=== PATIENT | female | born 1940 | race Caucasian/White ===

== ENCOUNTER 2024-10-20 10:52 | Observation (INO) ==
--- NOTE | 2024-10-20 11:56 | Emergency Department Note ---
Impression & Plan Stroke-like symptoms, Hypertensive urgency ED Provider Note NAME: DAVID RAYA AGE: 84 SEX: F : 1940 ARRIVES VIA: Ambulance INFORMANT: Patient, ED PROVIDER(S): Rufino Ramires MD CHIEF COMPLAINT: Left arm numbness, left leg weakness HPI: This is a 84-year-old female presented for transient left arm and leg numbness/weakness. Patient notes that about 2 days ago she states that her left arm felt numb. She then noticed that eating that her left leg felt weak and she could not move it she was dragging the leg. She notes that she had resolution of symptoms over the course a few hours. She notes that now both her legs feel somewhat weak but not significantly numb. She reports no chest pain, short breath, fever, chills, nausea or vomiting. No chest pain. No headache at this time. She will have a headache but 2 days ago which have since resolved with Tylenol. ROS: See above HPI for pertinent positives & negatives. A total of 10 systems reviewed and were otherwise negative. PAST MEDICAL HISTORY: See Below PAST SURGICAL HISTORY: See Below FAMILY HISTORY: See Below SOCIAL HISTORY: See Below HOME MEDICATIONS: See Below ALLERGIES: See Below VITALS: See Below PHYSICAL EXAMINATION: General: resting comfortably in no acute distress Head: Normocephalic and atraumatic Eyes: Normal inspection, extraocular muscles intact Ear, nose, throat: Normal external exam Neck: Normal range of motion Respiratory: lungs clear to auscultation bilaterally Cardiovascular: Regular rate/rhythm, no murmur GI: soft, nontender, no guarding or rebound Extremities: nontender, moves all extremities Neuro: The patient awake and alert, appropriately conversive, no focal deficits, symmetric faces, cranial 2-12 grossly intact, no motor drift Skin: Warm, dry, and intact MEDICAL DECISION MAKING: This is an 84-year-old female presenting for left arm/leg weakness/numbness. The symptoms have currently resolved concerning for a TIA. Low concern for acute stroke. Consider anemia, weakness, upper respiratory infection, pneumonia otherwise. -Bloodwork is reviewed showing no significant leukocytosis, anemia, electrolyte or creatinine abnormality -ECG independently interpreted by me with normal sinus rhythm, rate of 65, normal axis, normal IL, normal QRS, normal QTc, no ST segment elevations consistent with STEMI criteria -CTs of the head/CTA are both negative. There is no significant atherosclerosis or high-grade stenosis/arterial occlusion in the CTA of the neck. There is a 3 mm focus of saccular outpouching along the V3 segment of the right vertebral artery suggestive of small aneurysm without rupture. -Otherwise patient was notably hypertensive with pressures in the almost 220s systolic. Will give IV labetalol at this time -With patient's transient neurologic symptoms, will admit for further TIA/stroke workup -Discussed care with [facility] service for admission under Dr. Angel Differential diagnosis: Stroke, TIA, anemia, URI, Independent History obtained from: [facility] interpreted by me: ECG: See above Cardiac Monitoring: An order was placed for continuous cardiac monitoring. The monitor shows a rate of 63 with sinus rhythm. Past Med/Surg History Problem List (Updated 10/20/24 @ 19:00 by Rufino Ramires MD) Hypertensive urgency (Acute) Stroke-like symptoms (Acute) Medical History (Updated 10/20/24 @ 19:00 by Rufino Ramires MD) Elbow fracture Surgical History (Updated 10/20/24 @ 13:49 by Jena Malin PA-C) History of surgery on arm plate for a fracture Family History (Updated 10/20/24 @ 13:50 by Jena Malin PA-C) Brother Kidney disease Denies family history of Diabetes Heart disease Social History (Updated 10/20/24 @ 13:50 by Jena Malin PA-C) Smoking Status: Never smoker Hx Alcohol Use: No Hx Substance Use: No Preferred Language: German Communication Ability: Effective Site Lead Required: No Beliefs That Will Affect Care: None Current Living Situation: Alone Other Information That Helps Us Care for You: No Feels Safe at Home: Yes Safety Concerns: Feels Safe At This Time Assistive Devices: Glasses Allergies Allergies Allergy/AdvReac Type Severity Reaction Status Date / Time No Known Allergies Allergy Unverified 10/20/24 13:57 Home Meds Home Medications Medication Instructions Recorded Confirmed No Known Home Medications 10/20/24 10/20/24 Results & Data (ED) Vital Signs Vital Signs - 24 hr 10/20/24 10:52 10/20/24 11:05 10/20/24 11:12 Temperature 36.9 C Temperature Source Oral Pulse Rate 67 69 70 Pulse Rate [Left Apical] Pulse Rate from SpO2 Sensor 69 Respiratory Rate 17 12 Respiratory Effort / Characteristics Non-Labored Respiratory Depth Normal Respiratory Pattern Regular Blood Pressure 187/97 H Blood Pressure [Left Arm] Blood Pressure Mean 127 Blood Pressure Mean [Left Arm] Pulse Oximetry 97 97 Oxygen Delivery Method Room Air Sepsis Recent Fever Within 48 Hours No Sepsis New/Unexplained Change in Mental Status N/A Sepsis Action Taken by Nursing No Action Required 10/20/24 11:30 10/20/24 12:03 10/20/24 12:36 Temperature Temperature Source Pulse Rate 58 L 63 59 L Pulse Rate [Left Apical] Pulse Rate from SpO2 Sensor 57 L Respiratory Rate 23 17 16 Respiratory Effort / Characteristics Respiratory Depth Respiratory Pattern Blood Pressure Blood Pressure [Left Arm] Blood Pressure Mean Blood Pressure Mean [Left Arm] Pulse Oximetry 99 Oxygen Delivery Method Sepsis Recent Fever Within 48 Hours Sepsis New/Unexplained Change in Mental Status Sepsis Action Taken by Nursing 10/20/24 12:54 10/20/24 13:08 10/20/24 13:10 Temperature Temperature Source Pulse Rate 71 Pulse Rate [Left Apical] Pulse Rate from SpO2 Sensor Respiratory Rate 18 Respiratory Effort / Characteristics Respiratory Depth Respiratory Pattern Blood Pressure 206/87 H Blood Pressure [Left Arm] 217/91 H Blood Pressure Mean 149 Blood Pressure Mean [Left Arm] 133 Pulse Oximetry 97 Oxygen Delivery Method Room Air Sepsis Recent Fever Within 48 Hours Sepsis New/Unexplained Change in Mental Status Sepsis Action Taken by Nursing 10/20/24 13:13 10/20/24 13:14 10/20/24 13:20 Temperature Temperature Source Pulse Rate 66 Pulse Rate [Left Apical] 66 Pulse Rate from SpO2 Sensor Respiratory Rate Respiratory Effort / Characteristics Respiratory Depth Respiratory Pattern Blood Pressure 217/91 H 208/85 H Blood Pressure [Left Arm] Blood Pressure Mean 140 Blood Pressure Mean [Left Arm] Pulse Oximetry Oxygen Delivery Method Sepsis Recent Fever Within 48 Hours Sepsis New/Unexplained Change in Mental Status Sepsis Action Taken by Nursing 10/20/24 13:21 10/20/24 13:27 10/20/24 13:30 Temperature Temperature Source Pulse Rate 65 65 Pulse Rate [Left Apical] Pulse Rate from SpO2 Sensor Respiratory Rate 17 13 Respiratory Effort / Characteristics Respiratory Depth Respiratory Pattern Blood Pressure 188/86 H Blood Pressure [Left Arm] Blood Pressure Mean 151 Blood Pressure Mean [Left Arm] Pulse Oximetry 97 97 Oxygen Delivery Method Room Air Room Air Sepsis Recent Fever Within 48 Hours Sepsis New/Unexplained Change in Mental Status Sepsis Action Taken by Nursing 10/20/24 13:39 10/20/24 13:50 10/20/24 13:51 Temperature Temperature Source Pulse Rate 67 64 Pulse Rate [Left Apical] Pulse Rate from SpO2 Sensor Respiratory Rate 19 Respiratory Effort / Characteristics Respiratory Depth Respiratory Pattern Blood Pressure 187/94 H 188/86 H Blood Pressure [Left Arm] Blood Pressure Mean 139 Blood Pressure Mean [Left Arm] Pulse Oximetry 99 Oxygen Delivery Method Room Air Sepsis Recent Fever Within 48 Hours Sepsis New/Unexplained Change in Mental Status Sepsis Action Taken by Nursing 10/20/24 13:54 10/20/24 14:03 Temperature Temperature Source Pulse Rate 68 63 Pulse Rate [Left Apical] Pulse Rate from SpO2 Sensor 68 64 Respiratory Rate 20 21 Respiratory Effort / Characteristics Respiratory Depth Respiratory Pattern Blood Pressure 193/87 H Blood Pressure [Left Arm] Blood Pressure Mean 122 Blood Pressure Mean [Left Arm] Pulse Oximetry 97 99 Oxygen Delivery Method Sepsis Recent Fever Within 48 Hours Sepsis New/Unexplained Change in Mental Status Sepsis Action Taken by Nursing Laboratory Data 10/20/24 11:14 10/20/24 11:14 Lab Results 10/20/24 Range/Units 11:14 WBC 7.27 (4.8-10.8) K/ul RBC 4.21 (4.20-5.40) M/uL Hgb 12.6 (12.0-16.0) g/dl Hct 38.0 (37.0-47.0) % MCV 90.3 (80.0-100.0) fL MCH 29.9 (25.0-34.0) pg MCHC 33.2 (32.0-36.0) g/dL RDW Std Deviation 42.5 (36.4-46.3) fL RDW Coeff of Caleb 12.9 (11.5-14.5) % Plt Count 274 (130-400) K/uL MPV 9.9 (9.4-12.4) fL Immature Gran % (Auto) 0.6 % Neut % (Auto) 67.4 % Lymph % (Auto) 23.0 % [place] % (Auto) 6.5 % Eos % (Auto) 1.9 % Baso % (Auto) 0.6 % Neut # (Auto) 4.91 (1.40-6.50) K/uL Lymph # (Auto) 1.67 (1.20-3.40) K/uL [place] # (Auto) 0.47 (0.11-0.59) K/uL Eos # (Auto) 0.14 (0.00-0.50) K/uL Baso # (Auto) 0.04 (0.00-0.20) K/uL Immature Gran # (Auto) 0.04 (0.01-0.20) K/uL PT 10.4 (9.0-12.0) Seconds INR 1.0 (0.9-1.1) APTT 23 (21-31) Seconds PTT Ratio 0.9 Sodium 141 (136-145) mmol/L Potassium 4.0 (3.5-5.1) mmol/L Chloride 107 (98-107) mmol/L Carbon Dioxide 27 (21-32) mmol/L Anion Gap 7 (3-11) BUN 15 (6-23) mg/dl Creatinine 0.88 (0.6-1.2) mg/dl Est Cr Clr Drug Dosing Not Reportable eGFR 65.17 BUN/Creatinine Ratio 17.0 (10-20) Glucose 103 H (70-99(Fasting)) mg/dl Calcium 9.4 (8.6-10.3) mg/dl Magnesium 2.0 (1.7-2.4) mg/dl Total Bilirubin 0.9 (0.2-1.0) mg/dl AST 13 (13-39) U/L ALT 6 L (7-52) U/L Alkaline Phosphatase 71 (34-104) U/L Troponin I High Sens 11.0 (0-14) pg/ml Total Protein 7.7 (6.0-8.3) gm/dl Albumin 3.9 (3.4-5.0) gm/dl Globulin 3.8 (2.5-4.0) gm/dl Albumin/Globulin Ratio 1.0 (0.9-2) Administered Medications Aspirin (Aspirin 81 Mg Ectab) 81 mg PO [facility] Stop: 11/19/24 17:44 Last Admin: 10/20/24 18:50 Dose: 81 mg Documented By: PK Discontinued Medications Amlodipine Besylate (Amlodipine Besylate 5 Mg Tab) 5 mg PO NOW ONE Stop: 10/20/24 13:45 Last Admin: 10/20/24 14:49 Dose: 5 mg Documented By: RONNIE Hydralazine HCl (Hydralazine Hcl 20 Mg/Ml Vial) 5 mg IV NOW ONE Stop: 10/20/24 13:45 Last Admin: 10/20/24 13:58 Dose: 5 mg Documented By: RONNIE Ioversol (Optiray 320 125ml) 119 ml IV ONCE ONE Stop: 10/20/24 12:43 Last Admin: 10/20/24 12:42 Dose: 119 ml Documented By: GUILLERMINA Labetalol HCl (Labetalol Hcl Iv 5 Mg/Ml 20ml) 10 mg IV NOW STA Stop: 10/20/24 13:11 Last Admin: 10/20/24 13:14 Dose: 10 mg Documented By: [facility] Imaging Data Radiologist's Impression: Head CT 10/20/24 11:50 CT head/brain wo con CLINICAL HISTORY: 84 years-old Female with RUE, RLE weakness x2 days. Acute stroke like symptoms TECHNIQUE: Multiple axial CT images of the head were obtained without contrast. A dose lowering technique was utilized adhering to the principles of ALARA. COMPARISON: CTA head and neck of same day FINDINGS: No acute intracranial hemorrhage, midline shift, intracranial mass, hydrocephalus, territorial ischemia or abnormal extra-axial collection. Involutional changes with white matter hypodensities suggestive of chronic microvascular ischemic disease. The calvarium is intact. The paranasal sinuses, mastoid air cells, and middle ear cavities are clear. IMPRESSION: No acute intracranial abnormality. ACT 112: Negative or not required by law. The above report was generated using voice recognition software. It may contain grammatical, syntax or spelling errors. Electronically signed by: Joseph Duenas M.D. 10/20/2024 12:57 PM Head CTA 10/20/24 11:50 CTA ANGIOGRAPHY OF THE HEAD CLINICAL HISTORY: RUE, RLE weakness x2 days COMPARISON STUDY: No previous studies for comparison. TECHNIQUE: Helical axial images of the head were obtained following uneventful intravenous administration of 119 cc of Optiray. Sagittal and coronal reconstructions were viewed as well as maximal intensity projections on an independent 3-D workstation. Automated exposure control was utilized for the study. A dose lowering technique was utilized adhering to the principles of ALARA. FINDINGS: No acute intracranial hemorrhage, midline shift or mass effect is present. Ventricular system is unremarkable. Basal cisterns are patent. A small amount of fluid within the left mastoid air cells is present. The bilateral M1, M2, A1 and A2 segments are patent. No large vessel occlusion is present. No intracranial aneurysm. Posterior circulation is also intact. IMPRESSION: No large vessel occlusion. No intracranial aneurysm. ACT 112: Negative or not required by law. Electronically signed by: Scotty Rowley M.D. 10/20/2024 1:11 PM Neck CTA 10/20/24 11:50 CT angio neck with con CLINICAL HISTORY: 84 years-old Female with RUE, RLE weakness x2 days. Acute stroke like symptoms COMPARISON STUDY: CTA head of same day TECHNIQUE: Following the IV administration of 119 mL of Optiray, CT angiogram of the neck was performed from the aortic arch to the skull base. Images are reviewed in the axial, sagittal, and coronal planes. 3-D MIPS images are created and assessed. IV contrast was administered without complication. All measurements were calculated based on NASCET criteria. A dose lowering technique was utilized adhering to the principles of ALARA. CT DOSE: 1178.99 mGy.cm FINDINGS: Three-vessel morphology of the thoracic aortic arch. Patency of the innominate and imaged subclavian arteries. Patent common carotid arteries. The imaged internal carotid arteries are patent. The vertebral arteries are codominant and patent. 3 mm focus of saccular outpouching involves the C3 segment of the right vertebral artery in image 236 series 7. No high-grade stenosis, arterial occlusion or dissection identified. No pneumothorax. Partially imaged 5 mm groundglass nodular focus within the right lung apex. Thyroid goiter. No lymphadenopathy. Degenerative changes of the spine. IMPRESSION: 1. No significant atherosclerosis, high-grade stenosis or arterial occlusion identified. 2. 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 3. Partially imaged 5 mm groundglass nodular focus of the right upper lobe could be correlated with a nonemergent follow-up chest CT. 4. Thyroid goiter. ACT 112: Negative or not required by law. The above report was generated using voice recognition software. It may contain grammatical, syntax or spelling errors. Electronically signed by: Joseph Duenas M.D. 10/20/2024 1:02 PM Discharge Plan Visit Data Chief Complaint: Illness Stated Complaint: ILLNESS ED Provider: Rufino Ramires Discharge Problem: Stroke-like symptoms, Hypertensive urgency Patient Disposition: Admitted As Inpatient Discharge Instructions Interventions: ED Discharge Assessment Last Done: 10/20/24 15:20
[2024-10-20 12:20] LABS: Basophils # (auto) 0.04 K/uL (0.00-0.20); Basophils % (auto) 0.6 %; Eosinophils # (auto) 0.14 K/uL (0.00-0.50); Eosinophils % (auto) 1.9 %; Hemoglobin 12.6 g/dl (12.0-16.0); Immature Granulocytes # (auto) 0.04 K/uL (0.01-0.20); Immature Granulocytes % (auto) 0.6 %; Lymphocytes # (auto) 1.67 K/uL (1.20-3.40); Mean Corpuscular Hemoglobin 29.9 pg (25.0-34.0); Mean Corpuscular Hgb Conc 33.2 g/dL (32.0-36.0); Mean Corpuscular Volume 90.3 fL (80.0-100.0); Mean Platelet Volume 9.9 fL (9.4-12.4); Monocytes # (auto) 0.47 K/uL (0.11-0.59); Monocytes % (auto) 6.5 %; Neutrophils # (auto) 4.91 K/uL (1.40-6.50); Neutrophils % (auto) 67.4 %; Platelet Count 274 K/uL (130-400); RDW Coefficient of Variation 12.9 % (11.5-14.5); RDW Standard Deviation 42.5 fL (36.4-46.3); Red Blood Count 4.21 M/uL (4.20-5.40); White Blood Count 7.27 K/ul (4.8-10.8)
[2024-10-20 12:23] LABS: Alanine Aminotransferase 6 U/L (7-52); Albumin Level 3.9 gm/dl (3.4-5.0); Alkaline Phosphatase 71 U/L (34-104); Anion Gap 7 (3-11); Aspartate Aminotransferase 13 U/L (13-39); Bilirubin,Total 0.9 mg/dl (0.2-1.0); Blood Urea Nitrogen 15 mg/dl (6-23); Calcium 9.4 mg/dl (8.6-10.3); Carbon Dioxide 27 mmol/L (21-32); Chloride 107 mmol/L (98-107); Globulin 3.8 gm/dl (2.5-4.0); Glucose 103 mg/dl (70-99(Fasting)); Sodium 141 mmol/L (136-145); Total Protein 7.7 gm/dl (6.0-8.3)
[2024-10-20 12:37] LABS: Partial Thromboplastin Ratio 0.9; Partial Thromboplastin Time 23 Seconds (21-31); Prothrombin Time 10.4 Seconds (9.0-12.0)
[2024-10-20] MEDS: OPTIRAY 320 125ml IV ONE (12:42)
--- NOTE | 2024-10-20 12:59 | CT Scan Report ---
CT head/brain wo con CLINICAL HISTORY: 84 years-old Female with RUE, RLE weakness x2 days. Acute stroke like symptoms TECHNIQUE: Multiple axial CT images of the head were obtained without contrast. A dose lowering tech nique was utilized adhering to the principles of ALARA. COMPARISON: CTA head and neck of same day FINDINGS: No acute intracranial hemorrhage, midline shift, intracranial mass, hydrocephalus, territorial ischem ia or abnormal extra-axial collection. Involutional changes with white matter hypodensities suggestiv e of chronic microvascular ischemic disease. The calvarium is intact. The paranasal sinuses, mastoid air cells, and middle ear cavities are clear . IMPRESSION: No acute intracranial abnormality. ACT 112: Negative or not required by law. The above report was generated using voice recognition software. It may contain grammatical, syntax o r spelling errors. Electronically signed by: Joseph Duenas M.D. 10/20/2024 12:57 PM
--- NOTE | 2024-10-20 13:03 | CT Scan Report ---
CT angio neck with con CLINICAL HISTORY: 84 years-old Female with RUE, RLE weakness x2 days. Acute stroke like symptoms COMPARISON STUDY: CTA head of same day TECHNIQUE: Following the IV administration of 119 mL of Optiray, CT angiogram of the neck was perform ed from the aortic arch to the skull base. Images are reviewed in the axial, sagittal, and coronal pl anes. 3-D MIPS images are created and assessed. IV contrast was administered without complication. Al l measurements were calculated based on NASCET criteria. A dose lowering technique was utilized adhe ring to the principles of ALARA. CT DOSE: 1178.99 mGy.cm FINDINGS: Three-vessel morphology of the thoracic aortic arch. Patency of the innominate and imaged subclavian arteries. Patent common carotid arteries. The imaged internal carotid arteries are patent. The verteb ral arteries are codominant and patent. 3 mm focus of saccular outpouching involves the C3 segment of the right vertebral artery in image 236 series 7. No high-grade stenosis, arterial occlusion or diss ection identified. No pneumothorax. Partially imaged 5 mm groundglass nodular focus within the right lung apex. Thyroid goiter. No lymphadenopathy. Degenerative changes of the spine. IMPRESSION: 1. No significant atherosclerosis, high-grade stenosis or arterial occlusion identified. 2. 3 mm focus of saccular outpouching involves the V3 segment of the right vertebral artery suggestiv e of a small aneurysm without rupture. 3. Partially imaged 5 mm groundglass nodular focus of the right upper lobe could be correlated with a nonemergent follow-up chest CT. 4. Thyroid goiter. ACT 112: Negative or not required by law. The above report was generated using voice recognition software. It may contain grammatical, syntax o r spelling errors. Electronically signed by: Joseph Duenas M.D. 10/20/2024 1:02 PM
--- NOTE | 2024-10-20 13:12 | CT Scan Report ---
CTA ANGIOGRAPHY OF THE HEAD CLINICAL HISTORY: RUE, RLE weakness x2 days COMPARISON STUDY: No previous studies for comparison. TECHNIQUE: Helical axial images of the head were obtained following uneventful intravenous administr ation of 119 cc of Optiray. Sagittal and coronal reconstructions were viewed as well as maximal inten sity projections on an independent 3-D workstation. Automated exposure control was utilized for the study. A dose lowering technique was utilized adhering to the principles of ALARA. FINDINGS: No acute intracranial hemorrhage, midline shift or mass effect is present. Ventricular syst em is unremarkable. Basal cisterns are patent. A small amount of fluid within the left mastoid air ce lls is present. The bilateral M1, M2, A1 and A2 segments are patent. No large vessel occlusion is pre sent. No intracranial aneurysm. Posterior circulation is also intact. IMPRESSION: No large vessel occlusion. No intracranial aneurysm. ACT 112: Negative or not required by law. Electronically signed by: Scotty Rowley M.D. 10/20/2024 1:11 PM
[2024-10-20] MEDS: LABETALOL HCL IV 5 MG/ML 20ML IV STA (13:14)
--- NOTE | 2024-10-20 13:51 | History & Physical Report ---
Date of Service October 20, 2024 Assessment & Plan (1) Stroke-like symptoms: (2) Hypertensive urgency: Plan This is an 84 y/o female with no significant PMH who presented to the ED today for evaluation of intermittent stroke-like symptoms for the last two days. Work- up in the ED revealed a markedly elevated blood pressure at 217/91, pt received IV labetalol in the ED with improvement of systolic BP to the 180s. CT head was negative for acute intracranial pathology. Pt does not routinely follow with a medical provider so she is unsure if she has any chronic conditions such as hypertension or diabetes. Pt was referred for admission for further work-up. #Stroke-like symptoms - Observe in PCU overnight - Neuro checks per protocol - MRI brain without contrast - ECHO - Neuro consult - PT/OT evaluations - Pt passed bedside swallow so will not consult speech therapy at this time - Lipid panel, A1c in the AM - B12, folate, vitamin D level due to bilateral LE weakness - Add low-dose aspirin daily once blood pressure stabilizes #Hypertensive urgency - suspect underlying undiagnosed hypertension exacerbated by anxiety, elevated BP likely contributing to patient's symptoms - IV hydralazine PRN - Give dose of amlodipine today and monitor - Suspect will need to be discharge on anti-hypertensive therapy At discharge, pt will need outpatient f/u including to establish with a PCP at discharge Will need non-urgent CT chest to evaluate RUL nodular opacity Defer timing of repeat imaging for saccular aneurysm to neurology. Pt seen and reviewed with collaborating physician, Dr. Angel. Plan of care discussed and as outlined above. Code status: Full code DVT prophylaxis: SCDs until BP stabilizes. Anton Malin PA-C History of Present Illness Chief Complaint: stroke-like symptoms Primary Care Provider: NO PCP This is an 84 y/o female with no significant PMH who presented to the ED today for evaluation of intermittent stroke-like symptoms for the last two days. Pt reports that on Sunday (three days ago), she felt at her baseline. Two days ago, Sunday evening, she developed LUE numbness and paraesthesias followed by a sensation of left leg heaviness and inability to move correctly. Pt states that she had to drag her leg to get to her room where she sat down to rest for about half an hour before the symptoms resolved. Yesterday morning, she developed a similar sensation of heaviness in the right leg but not as severe or extensive. This lasted several minutes before going away. She also noted a headache yesterday that was preceded by vision changes described as "stripes in my vision" - she took some Tylenol and this improved. She has had similar headaches in the past, denies history of migraines. She denies chest pain, dyspnea, abdominal pain, N/V, changes in bowel movements, loss of appetite, change in urination. She has occasional palpitations. She did note transient lightheadedness at one over the weekend as well but no syncopal episode. She does not routinely follow with a PCP so she is unsure if she has any chronic medical conditions but denies history of diagnosed diabetes, hypertension, or heart disease. Allergies Allergy/AdvReac Type Severity Reaction Status Date / Time No Known Allergies Allergy Unverified 10/20/24 13:57 Home Medications Medication Instructions Recorded Confirmed Type No Known Home Medications 10/20/24 10/20/24 History Past Med/Surg History Problem List (Updated 10/20/24 @ 19:00 by Rufino Ramires MD) Hypertensive urgency (Acute) Stroke-like symptoms (Acute) Medical History (Updated 10/20/24 @ 19:00 by Rufino Ramires MD) Elbow fracture Surgical History (Updated 10/20/24 @ 13:49 by Jena Malin PA-C) History of surgery on arm plate for a fracture Family History (Updated 10/20/24 @ 13:50 by Jena Malin PA-C) Brother Kidney disease Denies family history of Diabetes Heart disease Social History (Updated 10/20/24 @ 13:50 by Jena Malin PA-C) Smoking Status: Never smoker Hx Alcohol Use: No Hx Substance Use: No Preferred Language: Nepali Communication Ability: Effective Display Director Required: No Beliefs That Will Affect Care: None Current Living Situation: Alone Other Information That Helps Us Care for You: No Feels Safe at Home: Yes Safety Concerns: Feels Safe At This Time Assistive Devices: Glasses Review of Systems Review of Systems: All systems reviewed & are unremarkable except as noted in Subjective Physical Exam Physical Exam: See physician note for details of the physical exam. Results & Data Results & Data Vital Signs (Past 12 Hours) Vital Signs Temp Pulse Pulse Resp BP BP Pulse Ox 10/20/24 13:39 67 19 99 10/20/24 13:30 188/86 H 10/20/24 13:27 65 13 97 10/20/24 13:21 65 17 97 10/20/24 13:20 208/85 H 10/20/24 13:14 66 217/91 H 10/20/24 13:13 66 10/20/24 13:10 217/91 H 10/20/24 13:08 206/87 H 10/20/24 12:54 71 18 97 10/20/24 12:36 59 L 16 10/20/24 12:03 63 17 10/20/24 11:30 58 L 23 99 10/20/24 11:12 70 12 97 10/20/24 11:05 69 10/20/24 10:52 36.9 C 67 17 187/97 H 97 O2 Del Method 10/20/24 13:39 Room Air 10/20/24 13:30 10/20/24 13:27 Room Air 10/20/24 13:21 Room Air 10/20/24 13:20 10/20/24 13:14 10/20/24 13:13 10/20/24 13:10 10/20/24 13:08 10/20/24 12:54 Room Air 10/20/24 12:36 10/20/24 12:03 10/20/24 11:30 10/20/24 11:12 10/20/24 11:05 10/20/24 10:52 Room Air Laboratory Results Lab Results 10/20/24 Range/Units 11:14 WBC 7.27 (4.8-10.8) K/ul RBC 4.21 (4.20-5.40) M/uL Hgb 12.6 (12.0-16.0) g/dl Hct 38.0 (37.0-47.0) % MCV 90.3 (80.0-100.0) fL MCH 29.9 (25.0-34.0) pg MCHC 33.2 (32.0-36.0) g/dL RDW Std Deviation 42.5 (36.4-46.3) fL RDW Coeff of Caleb 12.9 (11.5-14.5) % Plt Count 274 (130-400) K/uL MPV 9.9 (9.4-12.4) fL Immature Gran % (Auto) 0.6 % Neut % (Auto) 67.4 % Lymph % (Auto) 23.0 % Rooks % (Auto) 6.5 % Eos % (Auto) 1.9 % Baso % (Auto) 0.6 % Neut # (Auto) 4.91 (1.40-6.50) K/uL Lymph # (Auto) 1.67 (1.20-3.40) K/uL Rooks # (Auto) 0.47 (0.11-0.59) K/uL Eos # (Auto) 0.14 (0.00-0.50) K/uL Baso # (Auto) 0.04 (0.00-0.20) K/uL Immature Gran # (Auto) 0.04 (0.01-0.20) K/uL PT 10.4 (9.0-12.0) Seconds INR 1.0 (0.9-1.1) APTT 23 (21-31) Seconds PTT Ratio 0.9 Sodium 141 (136-145) mmol/L Potassium 4.0 (3.5-5.1) mmol/L Chloride 107 (98-107) mmol/L Carbon Dioxide 27 (21-32) mmol/L Anion Gap 7 (3-11) BUN 15 (6-23) mg/dl Creatinine 0.88 (0.6-1.2) mg/dl Est Cr Clr Drug Dosing Not Reportable eGFR 65.17 BUN/Creatinine Ratio 17.0 (10-20) Glucose 103 H (70-99(Fasting)) mg/dl Calcium 9.4 (8.6-10.3) mg/dl Magnesium 2.0 (1.7-2.4) mg/dl Total Bilirubin 0.9 (0.2-1.0) mg/dl AST 13 (13-39) U/L ALT 6 L (7-52) U/L Alkaline Phosphatase 71 (34-104) U/L Troponin I High Sens 11.0 (0-14) pg/ml Total Protein 7.7 (6.0-8.3) gm/dl Albumin 3.9 (3.4-5.0) gm/dl Globulin 3.8 (2.5-4.0) gm/dl Albumin/Globulin Ratio 1.0 (0.9-2) Diagnostic Findings Head CT 10/20/24 11:50 CT head/brain wo con CLINICAL HISTORY: 84 years-old Female with RUE, RLE weakness x2 days. Acute stroke like symptoms TECHNIQUE: Multiple axial CT images of the head were obtained without contrast. A dose lowering technique was utilized adhering to the principles of ALARA. COMPARISON: CTA head and neck of same day FINDINGS: No acute intracranial hemorrhage, midline shift, intracranial mass, hydrocephalus, territorial ischemia or abnormal extra-axial collection. Involutional changes with white matter hypodensities suggestive of chronic microvascular ischemic disease. The calvarium is intact. The paranasal sinuses, mastoid air cells, and middle ear cavities are clear. IMPRESSION: No acute intracranial abnormality. ACT 112: Negative or not required by law. The above report was generated using voice recognition software. It may contain grammatical, syntax or spelling errors. Electronically signed by: Joseph Duenas M.D. 10/20/2024 12:57 PM Head CTA 10/20/24 11:50 CTA ANGIOGRAPHY OF THE HEAD CLINICAL HISTORY: RUE, RLE weakness x2 days COMPARISON STUDY: No previous studies for comparison. TECHNIQUE: Helical axial images of the head were obtained following uneventful intravenous administration of 119 cc of Optiray. Sagittal and coronal reconstructions were viewed as well as maximal intensity projections on an independent 3-D workstation. Automated exposure control was utilized for the study. A dose lowering technique was utilized adhering to the principles of ALARA. FINDINGS: No acute intracranial hemorrhage, midline shift or mass effect is present. Ventricular system is unremarkable. Basal cisterns are patent. A small amount of fluid within the left mastoid air cells is present. The bilateral M1, M2, A1 and A2 segments are patent. No large vessel occlusion is present. No intracranial aneurysm. Posterior circulation is also intact. IMPRESSION: No large vessel occlusion. No intracranial aneurysm. ACT 112: Negative or not required by law. Electronically signed by: Scotty Rowley M.D. 10/20/2024 1:11 PM Neck CTA 10/20/24 11:50 CT angio neck with con CLINICAL HISTORY: 84 years-old Female with RUE, RLE weakness x2 days. Acute stroke like symptoms COMPARISON STUDY: CTA head of same day TECHNIQUE: Following the IV administration of 119 mL of Optiray, CT angiogram of the neck was performed from the aortic arch to the skull base. Images are reviewed in the axial, sagittal, and coronal planes. 3-D MIPS images are created and assessed. IV contrast was administered without complication. All measurements were calculated based on NASCET criteria. A dose lowering technique was utilized adhering to the principles of ALARA. CT DOSE: 1178.99 mGy.cm FINDINGS: Three-vessel morphology of the thoracic aortic arch. Patency of the innominate and imaged subclavian arteries. Patent common carotid arteries. The imaged internal carotid arteries are patent. The vertebral arteries are codominant and patent. 3 mm focus of saccular outpouching involves the C3 segment of the right vertebral artery in image 236 series 7. No high-grade stenosis, arterial occlusion or dissection identified. No pneumothorax. Partially imaged 5 mm groundglass nodular focus within the right lung apex. Thyroid goiter. No lymphadenopathy. Degenerative changes of the spine. IMPRESSION: 1. No significant atherosclerosis, high-grade stenosis or arterial occlusion identified. 2. 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 3. Partially imaged 5 mm groundglass nodular focus of the right upper lobe could be correlated with a nonemergent follow-up chest CT. 4. Thyroid goiter. ACT 112: Negative or not required by law. The above report was generated using voice recognition software. It may contain grammatical, syntax or spelling errors. Electronically signed by: Joseph Duenas M.D. 10/20/2024 1:02 PM Medications Administered Discontinued Medications Ioversol (Optiray 320 125ml) 119 ml IV ONCE ONE Stop: 10/20/24 12:43 Last Admin: 10/20/24 12:42 Dose: 119 ml Documented By: GUILLERMINA Labetalol HCl (Labetalol Hcl Iv 5 Mg/Ml 20ml) 10 mg IV NOW STA Stop: 10/20/24 13:11 Last Admin: 10/20/24 13:14 Dose: 10 mg Documented By: [facility] Supervising Physician Co-Signing Physician Notes Attending Addendum: Case reviewed with the advanced practitioner. I have personally performed a history and physical examination on the patient. I have reviewed the advanced practitioner's documentation on the date of service referenced in note, and I agree with, and take responsibility for the plan of care. please refer to her notes for full details patient seen and examined, records reviewed by myself as well on exam, patient seen resting in bed, comfortable reports mild BL lower extremity weakness, no other focal deficits reports episode of L sided weakness last Sunday no other symptoms VS noted and reviewed General- oriented x 3, not in distress, speaks in sentences with no effort or accessory muscle use Head- atraumatic Eyes- PERRL, EOMI, anicteric ENT- oropharynx clear Neck- supple, no JVD, no adenopathy, no thyromegaly; carotids +2/2, no bruits appreciated Lungs- clear to auscultation bilaterally, no rales/wheezes Heart- normal rate, regular rhythm; no murmur, no gallop, no rub appreciated Abdomen- normal bowel sounds, nondistended, soft, nontender, no masses or hepatosplenomegaly Extremities- no pretibial edema, no calf tenderness; peripheral pulses intact Neuro- alert, oriented x 3; CN 2-12 grossly intact; motor: BL LE 3/5, Upper Ext 5/5 bilaterally;sensation 100% on all extremities; no other gross focal neurologic deficits Skin- warm & dry all labs, imaging noted and reviewed ASSESSMENT AND PLAN> STROKE LIKE SYMPTOMS Episode of Left sided weakness BL lower ext weakness denies back pain CT head: No acute intracranial hemorrhage, midline shift, intracranial mass, hydrocephalus, territorial ischemia or abnormal extra-axial collection. Involutional changes with white matter hypodensities suggestive of chronic microvascular ischemic disease. The calvarium is intact. The paranasal sinuses, mastoid air cells, and middle ear cavities are clear. CT head and neck: 1. No significant atherosclerosis, high-grade stenosis or arterial occlusion identified. 2. 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 3. Partially imaged 5 mm groundglass nodular focus of the right upper lobe could be correlated with a nonemergent follow-up chest CT. 4. Thyroid goiter. 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
[2024-10-20] MEDS: hydrALAZINE HCL 20 MG/ML VIAL IV ONE (13:58)
[2024-10-20] MEDS: amLODIPine BESYLATE 5 MG TAB PO ONE ×2 (14:49→21:48)
--- NOTE | 2024-10-20 15:46 | Neurology Consultation ---
Date of Consultation October 20, 2024 Assessment & Plan (1) Stroke-like symptoms: -- Start ASA 81 mg, pt should take this indefinitely -- MRI Brain pending -- TTE pending -- Tele, LDL, HgbA1c -- LDL goal < 70 -- SBP long-term goal <130/80, patient should continue to monitor at home and manage -- PT/OT/ST -- Reach out to teleneurology for further questions follow-up recs pending MRI/TTE (2) Hypertensive urgency: -- Treat BP cautiously to avoid worsening stroke symptoms. goal SBP< 180. -- SBP long-term goal <130/80, patient should continue to monitor at home and manage Plan Anna Brown is an 84 yo woman w/ h/o who presents for left sided paresthesias and weakness lasting 15 minutes in the setting of SBP>200 at arrival. Exam is normal over camera and CT/CTA are unremarkable for obvious stroke, bleed or large vessel stenosis/occlusion. Her presentation is suspicious for TIA v stroke in setting of hypertensive emergency. Fortunately symptoms appear improved. Would recommend stroke work-up and gradual bp correction. Telehealth Consultation Telehealth Information Telehealth Information: I performed this visit using a real-time telehealth connection between my location and the patients location ([facility]). After connecting through interactive tele-video, patient was identified by name and date of and/or wristband check.Patient (or authorized healthcare inside sales representative) was informed that this was a telemedicine visit and it was being conducted confidentially over secure lines. My office door was closed and no one else was present in the room with me.Patient (or authorized healthcare inside sales representative) provided consent to proceed with the visit, expressed an understanding of privacy and security of the telemedicine visit, and gave permission to have a hospital inside sales representative in the room in order to assist with the visit and to conduct portions of the visit, as needed. I informed the patient (or authorized healthcare inside sales representative) that I reviewed their record and presented the opportunity for them to ask any questions regarding the visit today. The patient agreed to participate. History of Present Illness Reason for Consultation: Stroke like symptoms Attending Physician: Ferdinand Angel MD History of Present Illness Anna Brown is an 84 yo woman does not take any medications who presents for evaluation of left sided weakness/paresthesias in thes etting of SBP>200 on initial presentation. She states that symptoms started on Sunday. She noted that she could not feel her left arm or leg. When she stood up her left foot was dragging, this lasted about 15 minutes before resolving. Since then she has felt off here and there intermittently. States she has had a headache in the back of her head, and felt dizzy at one point. Currently she feels well. She does not take any medication or have a known history of high blood pressure. She denies chest pain or shortness or breath. Allergies Allergy/AdvReac Type Severity Reaction Status Date / Time No Known Allergies Allergy Unverified 10/20/24 13:57 Home Medications Medication Instructions Recorded Confirmed Type No Known Home Medications 10/20/24 10/20/24 History Patient History Medical History (Updated 10/20/24 @ 15:07 by Jena Malin PA-C) Elbow fracture Surgical History (Updated 10/20/24 @ 13:49 by Jena Malin PA-C) History of surgery on arm plate for a fracture Family History (Updated 10/20/24 @ 13:50 by Jena Malin PA-C) Brother Kidney disease Denies family history of Diabetes Heart disease Social History (Updated 10/20/24 @ 13:50 by Jena Malin PA-C) Smoking Status: Never smoker Hx Alcohol Use: No Hx Substance Use: No Preferred Language: Bulgarian Communication Ability: Effective Manufacturing Team Leader Required: No Beliefs That Will Affect Care: None Current Living Situation: Alone Other Information That Helps Us Care for You: No Feels Safe at Home: Yes Safety Concerns: Feels Safe At This Time Assistive Devices: Glasses Review of Systems Negative aside from HPI. Physical Exam See physician note for details of the physical exam. Constitutional No acute distress Eyes Pupils equal and reactive to light, no ptosis. EOM intact Neck trachea midline, no thyromegaly Respiratory normal work of breathing on room air Cardiovascular extremities appear warm and well perfused Skin no rashes, warm and dry Neurologic Oriented to:: Person, Place and Time Cognitive Function: Attention, Concentration, Organization and Cognitive Speed Memory: Short Term Intact, Remote Intact and Registration Intact Language: Naming Objects, Repeating Phrases and Writing a Sentence Cranial Nerves: Normal II, III, IV, , V, VII, VIII, IX, X, XI and XII Motor Strength: Normal Lower Extremities and Normal Upper Extremities Motor Tone: Normal Lower Extremities and Normal Upper Extremities Sensation: Light Touch Intact Coordination: Normal Results & Data Vital Signs (Past 12 Hours) Vital Signs Temp Pulse Pulse Resp BP BP Pulse Ox 10/20/24 15:20 71 16 186/92 H 97 10/20/24 15:10 186/92 H 10/20/24 15:00 184/81 H 10/20/24 15:00 184/81 H 10/20/24 14:50 185/93 H 10/20/24 14:42 71 13 183/82 H 97 10/20/24 14:03 63 21 193/87 H 99 10/20/24 13:54 68 20 97 10/20/24 13:51 64 188/86 H 10/20/24 13:50 187/94 H 10/20/24 13:39 67 19 99 10/20/24 13:30 188/86 H 10/20/24 13:27 65 13 97 10/20/24 13:21 65 17 97 10/20/24 13:20 208/85 H 10/20/24 13:14 66 217/91 H 10/20/24 13:13 66 10/20/24 13:10 217/91 H 10/20/24 13:08 206/87 H 10/20/24 12:54 71 18 97 10/20/24 12:36 59 L 16 10/20/24 12:03 63 17 10/20/24 11:30 58 L 23 99 10/20/24 11:12 70 12 97 10/20/24 11:05 69 10/20/24 10:52 36.9 C 67 17 187/97 H 97 O2 Del Method 10/20/24 15:20 Room Air 10/20/24 15:10 10/20/24 15:00 10/20/24 15:00 10/20/24 14:50 10/20/24 14:42 10/20/24 14:03 10/20/24 13:54 10/20/24 13:51 10/20/24 13:50 10/20/24 13:39 Room Air 10/20/24 13:30 10/20/24 13:27 Room Air 10/20/24 13:21 Room Air 10/20/24 13:20 10/20/24 13:14 10/20/24 13:13 10/20/24 13:10 10/20/24 13:08 10/20/24 12:54 Room Air 10/20/24 12:36 10/20/24 12:03 10/20/24 11:30 10/20/24 11:12 10/20/24 11:05 10/20/24 10:52 Room Air Laboratory Results Unremarkable Diagnostic Findings CT/CTA H/N 10/20/24: Unremarkable Medications Administered Per MAR
[2024-10-20] MEDS ORDERED: ACETAMINOPHEN 325 MG TAB PO PRN (15:49)
[2024-10-20] MEDS: ASPIRIN 81 MG ECTAB PO SCH (18:50)
--- NOTE | 2024-10-20 18:59 | Magnetic Resonance Report ---
Clinical History: Left arm numbness. Lightheadedness Technique: Multiple T1 and T2-weighted magnetic resonance images were obtained of the brain without gadolinium contrast Findings: There is no sign of acute or old infarction with normal-appearing diffusion weighted images. There is cerebral atrophy, within expected limits for the patient's age. There are focal and confluent areas of increased T2 signal intensity within the periventricular white matter of the cerebral hemispheres bilaterally. This is most likely due to chronic small vessel ischemic disease. No definite mass lesion is seen on this noncontrast study. There is no intracranial hemorrhage or other fluid collection. No midline shift or other form of herniation is seen. There is no hydrocephalus. Normal flow-voids are seen within the arteries of the [id number]. The orbits and paranasal sinuses appear normal. There is mild partial opacification of the right mastoid air cells Impression: 1. Cerebral atrophy and chronic small vessel ischemic disease 2. No sign of infarction or mass lesion 3. Mild partial opacification of the right mastoid air cells, which could be due to inflammatory mastoiditis Electronically signed by Saúl Castro 10-20-2024 6:59 PM
[2024-10-20] MEDS: hydrALAZINE HCL 20 MG/ML VIAL IV PRN (19:40)
--- NOTE | 2024-10-21 02:07 | CT Scan Report ---
EXAM: CT chest diagnostic wo con CLINICAL HISTORY: Chest pain. TECHNIQUE: Contiguous axial CT images of the chest were acquired without administration of intravenous contrast. Coronal and sagittal reconstructions were obtained. One of the following dose reduction techniques was utilized for this exam: Automated exposure control, adjustment of the mA and/or kV according to patient size, and use of iterative reconstruction. DLP: 694.34 mGy-cm, CTDI: 22.4 mGy. COMPARISON: None. FINDINGS: Lungs: Ground glass opacity is noted in the lateral and superior segments of the left lower lobe. Interlobular septal thickening with mild ground glass subpleural opacities is noted in the dependent portion of both lung bases, which could be gravity-dependent atelectasis. A ground glass nodule is noted in the superior lingular segment of the left upper lobe, measuring 4.7 mm. Ground glass nodules measuring 4 and 4.6 mm are seen in the inferior lingular segment of the left upper lobe. A 5.2 mm ground-glass nodule is noted at the anterior segment of the right lower lobe. Few scattered ground glass pulmonary micronodules. No pleural effusion or pleural thickening. Mediastinum: No abnormal lymphadenopathy. Mild cardiomegaly. Mildly dilated pulmonary trunk, measuring 3.3 cm. Thyroid gland: Diffuse enlargement of the thyroid gland, indenting the lateral aspects of the trachea, with retrosternal extension. Suspicion of thyroid nodules. Faint calcifications are noted in the left thyroid lobe. Trachea and Main Bronchi: The trachea and main bronchi are patent without evidence of obstruction or abnormality. Chest Wall: Asymmetry in the breast tissue could be positional. Upper Abdomen: Bilateral nonobstructive upper pole renal stones, the largest on the right measuring 1.3 cm in maximum axial dimension. Prominent left adrenal gland. High-density fluid leveling is noted in the dependent portion of the gallbladder. Could represent sludge formation. Bones: Degenerative changes of the visualized skeleton. IMPRESSION: 1. Ground glass opacity in the left lower lobe. Multiple scattered bilateral groundglass nodules and micro nodules. Clinical correlation to assess for an infectious process and follow-up after appropriate treatment is advised. 2. Mild cardiomegaly with mildly dilated pulmonary trunk. Clinical correlation is advised to assess for pulmonary hypertension. 3. Nonobstructive partially visualized renal stones. Clinical correlation is advised. 4. High-density fluid leveling is noted in the dependent portion of the gallbladder and could represent sludge formation, if clinically indicated please correlate with gallbladder ultrasound. 5. Bulky thyroid gland with suspicion of thyroid nodules. Retrosternal extension. Correlation with thyroid ultrasound is advised. Electronically signed by Diony Ashby 10-21-2024 02:07 AM
[2024-10-21 06:31] LABS: Chol HDL Ratio 3.6 (0-5)
[2024-10-21 06:59] LABS: Folate (Folic Acid),Ser orPlas 10.77 ng/ml (>5.38)
--- NOTE | 2024-10-21 08:26 | Ultrasound Report ---
THYROID ULTRASOUND CLINICAL HISTORY: thyroid goiter COMPARISON STUDY: Chest CT October 21, 2024. TECHNIQUE: Sonography of the thyroid gland was performed. FINDINGS: The thyroid gland is enlarged and heterogeneous. The right lobe measures 8.8 x 3.1 x 4.1 cm and the left lobe measures 7.5 x 3 x 3.3 cm. No well-defined thyroid nodules are present. The isthmu s measures 1.4 cm in AP dimension. IMPRESSION: Enlarged heterogeneous thyroid gland consistent with a goiter. No well-defined thyroid n odules. ACT 112: Negative or not required by law. Electronically signed by: Scotty Rowley M.D. 10/21/2024 8:25 AM
[2024-10-21] MEDS ORDERED: amLODIPine BESYLATE 5 MG TAB PO SCH (09:00)
[2024-10-21] MEDS: amLODIPine BESYLATE 5 MG TAB PO SCH (09:09)
[2024-10-21] MEDS: ATORVASTATIN 20 MG TAB PO SCH (09:09)
[2024-10-21] MEDS: CYANOCOBALAMIN (B-12) 500 MCG TABLET PO SCH (09:09)
[2024-10-21] MEDS: FOLIC ACID 1 MG TAB PO SCH (09:09)
[2024-10-21] MEDS: ERGOCALCIFEROL 1250 MCG (50,000 UNITS) CAP PO SCH (09:09)
[2024-10-21 11:41] VITALS: O2SAT 97
[2024-10-21 13:04] LABS: Thyroid Stimulating Hormone 16.614 uIu/ml (0.300-4.500)
[2024-10-21 13:20] LABS: Estimated Average Glucose 123 mg/dl; Hemoglobin A1C 5.9 % (4.5-5.6)
[2024-10-21 13:40] LABS: T4 Free Thyroxine 0.79 ng/dl (0.61-1.60)
[2024-10-21 14:23] VITALS: PULSE 69; RESP 19; TEMP 98.1
--- NOTE | 2024-10-21 14:28 | Discharge Summary ---
Date of Service October 21, 2024 Admission HPI Per Admitting Provider This is an 84 y/o female with no significant PMH who presented to the ED today for evaluation of intermittent stroke-like symptoms for the last two days. Pt reports that on Sunday (three days ago), she felt at her baseline. Two days ago, Sunday evening, she developed LUE numbness and paraesthesias followed by a sensation of left leg heaviness and inability to move correctly. Pt states that she had to drag her leg to get to her room where she sat down to rest for about half an hour before the symptoms resolved. Yesterday morning, she developed a similar sensation of heaviness in the right leg but not as severe or extensive. This lasted several minutes before going away. She also noted a headache yesterday that was preceded by vision changes described as "stripes in my vision" - she took some Tylenol and this improved. She has had similar headaches in the past, denies history of migraines. She denies chest pain, dyspnea, abdominal pain, N/V, changes in bowel movements, loss of appetite, change in urination. She has occasional palpitations. She did note transient lightheadedness at one over the weekend as well but no syncopal episode. She does not routinely follow with a PCP so she is unsure if she has any chronic medical conditions but denies history of diagnosed diabetes, hypertension, or heart disease. Admission Exam Per Admitting Provider General- oriented x 3, not in distress, speaks in sentences with no effort or accessory muscle use Head- atraumatic Eyes- PERRL, EOMI, anicteric ENT- oropharynx clear Neck- supple, no JVD, no adenopathy, no thyromegaly; carotids +2/2, no bruits appreciated Lungs- clear to auscultation bilaterally, no rales/wheezes Heart- normal rate, regular rhythm; no murmur, no gallop, no rub appreciated Abdomen- normal bowel sounds, nondistended, soft, nontender, no masses or hepatosplenomegaly Extremities- no pretibial edema, no calf tenderness; peripheral pulses intact Neuro- alert, oriented x 3; CN 2-12 grossly intact; motor: BL LE 3/5, Upper Ext 5/5 bilaterally;sensation 100% on all extremities; no other gross focal neurologic deficits Skin- warm & dry Principal Diagnosis Strokelike symptoms Hypertensive urgency Right Vertebral artery aneurysm Discharge Exam General- oriented x 3, not in distress, speaks in sentences with no effort or accessory muscle use Head- atraumatic Eyes- PERRL, EOMI, anicteric ENT- oropharynx clear Neck- supple, no JVD, no adenopathy, no thyromegaly; carotids +2/2, no bruits appreciated Lungs- clear to auscultation bilaterally, no rales/wheezes Heart- normal rate, regular rhythm; no murmur, no gallop, no rub appreciated Abdomen- normal bowel sounds, nondistended, soft, nontender, no masses or hepatosplenomegaly Extremities- no pretibial edema, no calf tenderness; peripheral pulses intact Neuro- alert, oriented x 3; CN 2-12 grossly intact; motor: BL LE 3/5, Upper Ext 5/5 bilaterally; sensation 100% on all extremities; no other gross focal neurologic deficits Skin- warm & dry Discharge Data Allergies Allergy/AdvReac Type Severity Reaction Status Date / Time No Known Allergies Allergy Unverified 10/20/24 13:57 Consultations 10/20/24 13:32 ED Decision to Admit Stat 10/20/24 14:06 Consult Neurology Routine Ordered Studies 10/20/24 11:50 CT angio head w con Stat CT angio neck with con Stat CT head/brain wo con Stat 10/20/24 14:06 MRI Brain [MR brain wo con] Urgent 10/20/24 22:59 CT chest diagnostic wo con Routine 10/21/24 00:00 US thyroid Routine Hospital Course (1) Stroke-like symptoms: (2) Hypertensive urgency: Plan 84 y/o female with no significant PMH who presented to the ED for evaluation of intermittent stroke-like symptoms for the last two days [employer]ICAL [employer]. Work-up in the ED revealed a markedly elevated blood pressure at 217/91, pt received IV labetalol in the ED with improvement of systolic BP to the 180s. CT head was negative for acute intracranial pathology. Pt does not routinely follow with a medical provider so she is unsure if she has any chronic conditions such as hypertension or diabetes. Pt was referred for admission for further work-up. She was managed for the following: #Stroke-like symptoms Patient reports resolution of her symptoms [LUE numbness and LLE weakness] and no further neurological symptoms. CT head and MRI brain with no acute finding. CTA head with no acute finding. CTA neck with right vertebral artery aneurysm 3 mm, right upper lobe 5 mm nodule. Echo with EF of 60 to 65%, normal LV systolic function and wall motion, intact interatrial septum. Discussed with neurology, recommends neurosurgery evaluation as an outpatient for vertebral aneurysm. Okay to discharge from the standpoint. Continue with statin and blood pressure medication. Repeat A1c in 3 months. Vitamin B12/folic acid/vitamin D supplements started. #Hypertensive urgency - suspect underlying undiagnosed hypertension exacerbated by anxiety, elevated BP likely contributing to patient's symptoms. Started on amlodipine. Patient advised to measure blood pressure twice a day to maintain a log to take to primary care physician for ongoing evaluation/management. Prediabetes: Repeat A1c in 3 months, encouraged lifestyle modification/healthy diet/daily exercise regimen. Hypothyroidism and goiter: Discussed with endocrinology on-call, starting on levothyroxine 25 mcg daily, repeat TFT in to 6 weeks, follow-up with endocrinology in 2 to 4 weeks. Code status: Full code DVT prophylaxis: SCDs Patient is being discharged home with following instruction at the point of discharge: Follow-up with your primary care physician within a week time and likely you will need labs CBC/CMP/magnesium/phosphorus. You were evaluated for strokelike symptoms and hypertensive urgency, neurology also evaluated you. Follow-up with neurology in 2 to 4 weeks time upon discharge. You have been started on aspirin and statin. For your blood pressure, you have been started on amlodipine. Measure your blood pressure twice a day, maintain a log to take to your primary care physician for ongoing evaluation/management. Your vitamin D level was low, you have been started on weekly vitamin D supplementation for 6 weeks, you will need repeat vitamin D level and further prescription of daily vitamin D thereafter. Coordinate with your PCP office for ongoing need for monitoring/management. You have been noted to have right vertebral artery aneurysm, you will need neurosurgery evaluation as outpatient and possibly you will need repeat CT scan to follow-up on the aneurysm in 6 months to 1 year time. Coordinate with your PCP office or neurology office for referral and to set up the test. You are noted to have goiter, recommend that you follow-up with endocrinology in 1 to 2 weeks time upon discharge. Coordinate with your PCP office to set up the referral. Repeat CT scan of the chest in 6 months time to follow-up on multiple nodules on the lung. You were noted to have hypothyroidism, you will be started on small dose of levothyroxine of 25 mcg daily. You will need thyroid function test in 6 weeks, coordinate with your pcp office to set up the test. Take your medications as prescribed. Please make sure that you are able to get your medications today by calling your pharmacy before you leave the hospital so that your treatment continuity is not broken. Home Health Attestation I certify that this patient is under my care and that I, or a physicians bilingual office assistant working with me, had a face to-face encounter that meets the home health [id number] encounter requirements with this patient. The encounter with the patient was in whole, or in part, for the following medical condition, which is the primary reason for home health care (list medical condition): I certify that, based on my findings, the following services are medically ne cessary home health services: My clinical findings support the need for the above services because: Further, I certify that my clinical findings support that this patient is homebound (i.e. absences from home require considerable and taxing effort and are for medical reasons or mormonism services or infrequently or of short duration when for other reasons) because: Certification for Home Health Services: Based on the above findings, I certify that this patient is confined to the home and needs intermittent group home care, physical therapy and/or speech therapy or continues to need occupational therapy. The patient is under my care, and I have initiated the establishment of the plan of care. This patient will be followed by a physician who will periodically review the plan of care. Total Time Total Time Spent Total Time Spent (In Minutes): 45 Discharge Plan Discharge Items Patient Disposition: Home - Self-Care Reason For Visit: STROKE-LIKE SYMPTOMS Discharge Diagnosis: Strokelike symptoms Hypertensive urgency right Vertebral artery aneurysm Activity: Resume your previous activity Non-emergency contact: Primary Care Provider Call non-emergency contact if: you have any medication questions, your symptoms worsen and your temperature is above 101 Follow-up/Referrals: Nestor Ibarra DO [Physician] - (10/29/24 at 11:[address] Ibarra for hospital follow up appointment. 12/09/24 at 1:[address] Ibarra for a new patient appointment to establish care. If able, can you have previous health care providers fax your records over to the office. The fax number is [phone].) Diet: Heart Healthy and Low Sodium (2gm) Addtl Attending Provider Instructions: Follow-up with your primary care physician within a week time and likely you will need labs CBC/CMP/magnesium/phosphorus. You were evaluated for strokelike symptoms and hypertensive urgency, neurology also evaluated you. Follow-up with neurology in 2 to 4 weeks time upon discharge. You have been started on aspirin and statin. For your blood pressure, you have been started on amlodipine. Measure your blood pressure twice a day, maintain a log to take to your primary care physician for ongoing evaluation/management. Your vitamin D level was low, you have been started on weekly vitamin D supplementation for 6 weeks, you will need repeat vitamin D level and further prescription of daily vitamin D thereafter. Coordinate with your PCP office for ongoing need for monitoring/management. You have been noted to have right vertebral artery aneurysm, you will need neurosurgery evaluation as outpatient and possibly you will need repeat CT scan to follow-up on the aneurysm in 6 months to 1 year time. Coordinate with your PCP office or neurology office for referral and to set up the test. You are noted to have goiter, recommend that you follow-up with endocrinology in 1 to 2 weeks time upon discharge. Coordinate with your PCP office to set up the referral. Repeat CT scan of the chest in 6 months time to follow-up on multiple nodules on the lung. You were noted to have hypothyroidism, you will be started on small dose of levothyroxine of 25 mcg daily. You will need thyroid function test in 6 weeks, coordinate with your pcp office to set up the test. Take your medications as prescribed. Please make sure that you are able to get your medications today by calling your pharmacy before you leave the hospital so that your treatment continuity is not broken. Pending Studies at Discharge: Yes Stand-Alone Forms: [employer], Smoking Cessation Medications and DC Order Prescriptions: New amlodipine [Norvasc] 5 mg Tablet 5 mg PO QAM Qty: 30 0RF atorvastatin 40 mg Tablet 40 mg PO QAM Qty: 30 0RF aspirin 81 mg Tablet,Delayed Release (Dr/Ec) 81 mg PO QAM Qty: 30 0RF cyanocobalamin (vitamin B-12) 500 mcg Tablet 500 mcg PO QAM Qty: 30 0RF ergocalciferol (vitamin D2) 1,250 mcg (50,000 unit) Capsule 1,250 mcg PO Q7D 42 Days Qty: 6 0RF folic acid 1 mg Tablet 1 mg PO QAM Qty: 30 0RF levothyroxine [Synthroid] 25 mcg Tablet 25 mcg PO DAILYBB Qty: 30 0RF Discharge Orders: Discharge Order (Routine); Ordered 10/21/24 Ordered By: Luisa Perez/Other Patient Handouts: ED Symptoms Uncertain Cause Admission Data Admit Date/Time: 10/20/24 14:10 Attending Provider: Luisa Haji Admit Provider: Ferdinand Angel Primary Care Provider: PCP,NO Other Providers: Ferdinand Angel; Danni Osuna Other Interventions: Discharge Summary Assessment (RN) Last Done: 10/21/24 13:40
[2024-10-21] MEDS: hydrOXYzine HCl 25 MG TAB PO PRN (15:17)
[2024-10-21 17:11] VITALS: BP 139/85
--- NOTE | 2024-10-22 06:06 | Electrocardiogram Report ---
Test Reason : Blood Pressure : */* mmHG Vent. Rate : 65 BPM Atrial Rate : 65 BPM P-R Int : 144 ms QRS Dur : 86 ms QT Int : 416 ms P-R-T Axes : 22 -5 22 degrees QTcB Int : 432 ms Normal sinus rhythm Minimal voltage criteria for LVH, may be normal variant ( R in aVL ) Borderline ECG No previous ECGs available Confirmed by Amrik Khalil ([id number]) on 10/22/2024 6:06:03 AM Referred By: REFERRED SELF Confirmed By: Amrik Khalil
[2024-10-22] MEDS ORDERED: LEVOTHYROXINE SODIUM 25 MCG TABLET PO SCH (06:30)
[2024-10-22] MEDS ORDERED: ATORVASTATIN 40 MG TAB PO SCH (09:00)
--- NOTE | 2024-11-05 10:35 | Coding Query ---
A supporting diagnosis is required for the test/procedure performed on this patient in order for us to be reimbursed by the patient's insurance. Please provide a supporting diagnosis for the following test/procedure listed below next to the test name along with your signature. *If there is no additional diagnosis for this patient that would support the following test/procedure please document that below next to the test/procedure. Test(s)/Procedure(s) that require a supporting diagnosis: *VITAMIN D 25 HYDROXY 10753 DIAGNOSIS: Bilateral LE weakness (R53.1) and stroke-like symptoms. Provider Signature: Jena Malin PA-C Date: __11/10/24____ Thank you Yamini Ferrell [employer] Information Management Once completed, please kindly fax back to [phone] For questions please call [phone] [email or web address]
== END 2024-10-21 17:11 | disposition home or self-care (01) ==
LOC: ED 10:52 → 2E 10:52 → SUATTDRO 14:10 → 2E 15:20